=== PATIENT | female | born 1955 | race Caucasian/White ===

== ENCOUNTER 2017-09-15 12:55 | Outpatient (CLI) | payer OTHER | END 2017-09-15 12:56 | disposition home or self-care (01) | LOC: BICRAD 12:55 | PROVIDERS: ATTEND Podiatrist | DX: M79.672 Pain in left foot (principal); M77.9 Enthesopathy, unspecified ==

== ENCOUNTER 2018-04-15 06:04 | Day surgery (SDC) | payer OTHER ==
[2018-04-14 08:39] VITALS: BMI 25.8
[2018-04-15] MEDS ORDERED: Fentanyl 100 MCG/2 ML VIAL ONE ×2 (06:31→08:38)
[2018-04-15] MEDS ORDERED: Midazolam HCl 2 mg/2 ml Vial ONE (06:31)
[2018-04-15] MEDS ORDERED: CEFAZOLIN/Water 2 GM/20 ML SYRINGE ONE (07:01)
[2018-04-15] MEDS ORDERED: Lidocaine 2% 10 ML INJ ONE ×2 (07:10)
[2018-04-15] MEDS ORDERED: Bupivacaine HCl 0.5%/Epinephrine 1:200,000/PF 30 ml Vial ONE ×2 (07:10)
--- NOTE | 2018-04-15 09:09 | OP ---
DATE OF PROCEDURE: 04/15/2018. PREOPERATIVE DIAGNOSES: 1. Soft tissue mass, 4 cm back. 2. Soft tissue mass 3 cm, right thigh. POSTOPERATIVE DIAGNOSES: 1. Soft tissue mass, 4 cm back. 2. Soft tissue mass 3 cm, right thigh. PROCEDURE: Excision soft tissue mass back, soft tissue mass, right thigh. SURGEON: Umair Moya M.D. ANESTHESIA: General. ESTIMATED BLOOD LOSS: Minimal. COMPLICATIONS: None. SPECIMEN: Soft tissue mass right thigh and back. TECHNIQUE: The patient was taken to the operating placed supine on the table. After general anesthe tic was obtained, she was placed in left lateral decubitus position. Her posterior back and upper ba ck, as well as her right lateral upper thigh are prepped and draped in a sterile fashion. Local anes thetic infiltrated over each and incisions were made over each palpable abnormality. Each palpable a bnormality is dissected free from surrounding structures and sent separate to path for final diagnosi s. The cavity in the posterior back was large enough to require a #10 drain, it was brought out thro h separate stab incision, sewn to the skin using silk. The incisions were both closed using 3-0 Vi cryl, 4-0 Monocryl, and Dermabond. The patient was en route to recovery in stable condition. All in strument counts, needle counts, lap counts were correct.
[2018-04-15] MEDS ORDERED: HYDROcodone/Acetaminophen 5/325 mg Tablet ONE (09:43)
[2018-04-15] MEDS ORDERED: Dexamethasone 20 MG/5 ML VIAL ONE (14:46)
[2018-04-15] MEDS ORDERED: Ondansetron HCl/PF 4 MG/2 ML Vial ONE (14:46)
[2018-04-15] MEDS ORDERED: Glycopyrrolate 0.2 MG/ML 5 ML SYRINGE ONE (14:46)
[2018-04-15] MEDS ORDERED: PROPOFOL 200 MG/20 ML VIAL ONE (14:46)
== END 2018-04-15 10:45 | disposition home or self-care (01) ==
LOC: SDC 06:04
PROVIDERS: ATTEND Surgery
PROC: 0JBL0ZZ Excision of Right Upper Leg Subcutaneous Tissue and Fascia, Open Approach (ICD-10-PCS; principal; 2018-04-15)
PROC: 0JB70ZZ Excision of Back Subcutaneous Tissue and Fascia, Open Approach (ICD-10-PCS; principal; 2018-04-15)
DX: M79.9 Soft tissue disorder, unspecified (principal); Z91.048 Other nonmedicinal substance allergy status
CPT/HCPCS: 88304; 96374; J0670; J1100; J2250; J2405; J2704; J3010

== ENCOUNTER 2018-06-02 10:16 | Outpatient (CLI) | payer OTHER | END 2018-06-02 10:17 | disposition home or self-care (01) | LOC: BICMAMMO 10:16 | PROVIDERS: ATTEND Internal Medicine | DX: Z12.31 Encounter for screening mammogram for malignant neoplasm of breast (principal); Z80.3 Family history of malignant neoplasm of breast | CPT/HCPCS: 77063; 77067 ==

== ENCOUNTER 2019-12-21 06:15 | Outpatient (CLI) | payer OTHER ==
[2019-12-21 09:29] LABS: #Basophils 0.1 thou/uL (0.0-0.2); #Eosinphils 0.1 thou/uL (0.0-0.7); #Lymphocytes 3.5 thou/uL (1.20-3.40); #Monocytes 0.6 thou/uL (0.11-0.59); #Neutrophils 3.2 thou/uL (1.40-6.50); %Basophils 0.8 % (0.0-1.0); %Lymphocytes 47.1 % (21.0-51.0); Hemoglobin 13.9 g/dL (12.0-16.0); Mean Corpuscular HGB CONC 32.8 g/dL (32.0-36.0); Mean Corpuscular Hemoglobin 30.1 pg (27.0-31.0); Mean Corpuscular Volume 91.7 fL (78.0-98.0); Mean Platelet Volume 6.8 fL (7.4-10.4); Platelet Count 354 thou/uL (130-400); RBC Distribution Width 11.3 % (11.5-14.5); Red Blood Cell (RBC) Count 4.62 mill/uL (4.20-5.40); White Blood Cell (WBC) Count 7.3 thou/uL (4.8-10.8)
[2019-12-21 10:02] LABS: Anion Gap 14 mmol/L (10-20); BUN (Urea Nitrogen) 12 mg/dL (9.8-20.1); Calc. Creatinine Clearance 0 mL/min (70-130); Calcium 9.7 mg/dL (7.8-10.44); Carbon Dioxide 27 mmol/L (23-31); Chloride 103 mmol/L (98-107); Estimated GFR-MDRD 70; Glucose 104 mg/dL (80-115); Potassium 3.9 mmol/L (3.5-5.1); Sodium 140 mmol/L (136-145)
[2019-12-21 17:16] LABS: SARS-CoV-2 MS2 Positive; SARS-CoV-2 N Gene Negative; SARS-CoV-2 S Gene Negative; SARS-CoV-2 orf1ab Negative
== END 2019-12-21 06:16 | disposition home or self-care (01) ==
LOC: LABBT 06:15
PROVIDERS: ATTEND Orthopaedic Surgery
DX: Z01.812 Encounter for preprocedural laboratory examination (principal); Z11.59 Encounter for screening for other viral diseases; G56.01 Carpal tunnel syndrome, right upper limb
CPT/HCPCS: 80048; 85025; 87635; U0003

== ENCOUNTER 2019-12-22 08:57 | Day surgery (SDC) | payer OTHER ==
[2019-12-21 08:10] VITALS: BMI 25.0
[2019-12-22] MEDS ORDERED: Propofol 500 MG/50 ML VIAL ONE (11:43)
[2019-12-22] MEDS ORDERED: Fentanyl 100 MCG/2 ML VIAL ONE (11:43)
[2019-12-22] MEDS ORDERED: Lidocaine 1% w/Epinephrine 1:100K 20 ML VIAL ONE (11:50)
--- NOTE | 2019-12-23 08:25 | OP ---
DATE OF PROCEDURE: 12/22/2019 PREOPERATIVE DIAGNOSIS: Right carpal tunnel syndrome. POSTOPERATIVE DIAGNOSIS: Right carpal tunnel syndrome. TYPE OF PROCEDURE: Right carpal tunnel release. ANESTHESIA: TIVA. ESTIMATED BLOOD LOSS: Minimal. TOURNIQUET TIME: SPECIMEN: None. DRAINS: None. COMPLICATIONS: None. PROCEDURE IN DETAIL: After appropriate consent was obtained, the patient was taken to the operating room where TIVA anesthesia was induced. The arm was prepped and draped in the sterile fashion. The arm was exsanguinated. The tourniquet was inflated to 250 mmHg. A longitudinal incision was made. Hemostasis obtained. Dissection was carried down to the transverse carpal ligament. The transverse carpal ligament was incised. Hemostat was placed deep in the transverse carpal ligament. The knife was used to cut down unto the ligament and hemostat. Care was taken to protect the contents of the carpal canal. Attention was then turned proximally. Metzenbaum scissors were used to release the carpal ligament into the forearm fascia. The carpal tunnel was palpated. There were no masses. The tourniquet was released. Hemostasis was obtained. Copious irrigation performed. The skin was closed with 4-0 nylon. A sterile dressing was applied and the patient was placed in a splint. There were no complications. Job ID: [id number]
== END 2019-12-22 13:15 | disposition home or self-care (01) ==
LOC: SDC 08:57
PROVIDERS: ATTEND Orthopaedic Surgery
PROC: 01N50ZZ Release Median Nerve, Open Approach (ICD-10-PCS; principal; 2019-12-22)
DX: G56.01 Carpal tunnel syndrome, right upper limb (principal); M19.90 Unspecified osteoarthritis, unspecified site; Z91.048 Other nonmedicinal substance allergy status; Z79.899 Other long term (current) drug therapy
CPT/HCPCS: J0690; J2704; J3010

== ENCOUNTER 2020-11-19 15:12 | Outpatient (CLI) | payer OTHER | END 2020-11-19 15:13 | disposition home or self-care (01) | LOC: BICMAMMO 15:12 | PROVIDERS: ATTEND Internal Medicine | DX: Z12.31 Encounter for screening mammogram for malignant neoplasm of breast (principal); Z13.820 Encounter for screening for osteoporosis; M19.90 Unspecified osteoarthritis, unspecified site; M85.89 Other specified disorders of bone density and structure, multiple sites; Z80.3 Family history of malignant neoplasm of breast | CPT/HCPCS: 77063; 77067; 77080 ==

== ENCOUNTER 2020-11-21 10:13 | Outpatient (CLI) | payer OTHER | END 2020-11-21 10:14 | disposition home or self-care (01) | LOC: BICMAMMO 10:13 | PROVIDERS: ATTEND Internal Medicine | DX: R92.2 Inconclusive mammogram (principal); N63.10 Unspecified lump in the right breast, unspecified quadrant; N60.01 Solitary cyst of right breast | CPT/HCPCS: G0279 ==

== ENCOUNTER 2021-05-27 16:02 | Outpatient (CLI) | payer OTHER | END 2021-05-27 16:03 | disposition home or self-care (01) | LOC: BICULT 16:02 | PROVIDERS: ATTEND Internal Medicine | DX: R92.8 Other abnormal and inconclusive findings on diagnostic imaging of breast (principal) ==

== ENCOUNTER 2024-06-23 10:40 | Outpatient (CLI) | payer MEDICARE | END 2024-06-23 10:41 | disposition home or self-care (01) | LOC: SCSMRI 10:40 | PROVIDERS: ATTEND Orthopaedic Surgery | DX: M75.101 Unspecified rotator cuff tear or rupture of right shoulder, not specified as traumatic (principal); S43.431A Superior glenoid labrum lesion of right shoulder, initial encounter ==

== ENCOUNTER 2024-08-15 11:38 | Outpatient (CLI) | payer MEDICARE ==
[2024-08-15 12:52] LABS: #Basophils 0.04 10x3/uL (0.0-0.2); %Basophils 0.5 % (0.0-1.0); %Lymphocytes 39.4 % (21.0-51.0); %Monocytes 8.4 % (0.0-10.0); %Neutrophils 50.2 % (42.0-75.0); Mean Corpuscular HGB CONC 33.3 g/dL (32.0-36.0); Mean Corpuscular Hemoglobin 29.7 pg (27.0-31.0); Mean Platelet Volume 8.7 fL (7.4-10.4); Platelet Count 401 10x3/uL (130-400); RBC Distribution Width 12.8 % (11.5-14.5); Red Blood Cell (RBC) Count 4.72 mill/uL (4.20-5.40)
[2024-08-15 13:05] LABS: Anion Gap 12 mmol/L (10-20); BUN (Urea Nitrogen) 20 mg/dL (9.8-20.1); Calc. Creatinine Clearance 0 mL/min (70-130); Calcium 10.2 mg/dL (7.8-10.44); Carbon Dioxide 29 mmol/L (23-31); Chloride 103 mmol/L (98-107); Estimated GFR 77; Glucose 94 mg/dL (80-115); Potassium 4.6 mmol/L (3.5-5.1); Sodium 139 mmol/L (136-145)
== END 2024-08-15 11:39 | disposition home or self-care (01) ==
LOC: LABBT 11:38
PROVIDERS: ATTEND Orthopaedic Surgery
DX: Z01.818 Encounter for other preprocedural examination (principal); M75.101 Unspecified rotator cuff tear or rupture of right shoulder, not specified as traumatic
CPT/HCPCS: 71046; 80048; 85025

== ENCOUNTER 2024-08-19 08:43 | Day surgery (SDC) | payer MEDICARE ==
[2024-08-15 11:55] VITALS: BMI 26.2
[2024-08-19] MEDS ORDERED: fentaNYL 50 mcg/mL 1 mL Vial ONE (09:18)
[2024-08-19] MEDS ORDERED: Ropivacaine 0.2% HCl/PF 20 ML ONE (09:18)
[2024-08-19] MEDS ORDERED: Bupivacaine 0.25% HCL 30 ML VIAL ONE (09:18)
[2024-08-19] MEDS ORDERED: EPINEPHrine 1 MG/ML VIAL ONE (09:18)
[2024-08-19] MEDS ORDERED: Midazolam HCl 2 mg/2 ml Vial ONE (09:18)
[2024-08-19] MEDS ORDERED: Ropivacaine 0.5% HCl/PF (150 MG/30 ML VIAL) ONE (09:18)
[2024-08-19] MEDS ORDERED: PROPOFOL 20 ML ONE (09:28)
[2024-08-19] MEDS ORDERED: fentaNYL PF 100 MCG/2 ML SYRINGE ONE (09:28)
[2024-08-19] MEDS ORDERED: Rocuronium Bromide 10 MG/ML (10ML VIAL) ONE (09:29)
[2024-08-19] MEDS ORDERED: Lidocaine 1% PF 5 ML VIAL ONE (09:29)
[2024-08-19] MEDS ORDERED: CEFAZOLIN 2 GM VIAL ONE (09:45)
[2024-08-19] MEDS ORDERED: traMADol HCl 50 MG TAB PO PRN ×2 (10:15)
[2024-08-19] MEDS ORDERED: Promethazine HCl 25 MG/ML VIAL IM PRN (10:15)
[2024-08-19] MEDS ORDERED: Ondansetron PF 4 MG/2 ML Vial IVP PRN (10:15)
[2024-08-19] MEDS ORDERED: Zolpidem Tartrate 5 MG TAB PO PRN (10:15)
[2024-08-19] MEDS ORDERED: Ropivacaine 0.2% 550 ML 550 ML NERVE BLCK SCH (10:15)
[2024-08-19] MEDS ORDERED: HYDROcodone/Acetaminophen 10/325 mg Tablet PO PRN ×2 (10:15)
[2024-08-19] MEDS ORDERED: Dexamethasone 20 MG/5 ML VIAL ONE (10:30)
[2024-08-19] MEDS ORDERED: Ondansetron PF 4 MG/2 ML Vial ONE (10:30)
[2024-08-19] MEDS ORDERED: PHENYLEPHRINE-NS 100 MCG/ML 10 ML SYRINGE ONE (10:41)
[2024-08-19] MEDS ORDERED: ePHEDrine Sulfate 50 MG/10 ML VIAL ONE (11:12)
[2024-08-19] MEDS ORDERED: SUGAMMADEX SODIUM 200 MG/2 ML VIAL ONE (11:33)
[2024-08-19] MEDS ORDERED: Ketorolac Tromethamine 30 MG (1 mL) VIAL IVP SCH (12:00)
== END 2024-08-19 14:10 | disposition home or self-care (01) ==
LOC: SDC 08:43
PROVIDERS: ATTEND Orthopaedic Surgery
PROC: 0RNJ4ZZ Release Right Shoulder Joint, Percutaneous Endoscopic Approach (ICD-10-PCS; principal; 2024-08-19)
PROC: 0LQ14ZZ Repair Right Shoulder Tendon, Percutaneous Endoscopic Approach (ICD-10-PCS; 2024-08-19)
PROC: 0LS30ZZ Reposition Right Upper Arm Tendon, Open Approach (ICD-10-PCS; 2024-08-19)
PROC: 3E0T3BZ Introduction of Anesthetic Agent into Peripheral Nerves and Plexi, Percutaneous Approach (ICD-10-PCS; 2024-08-19)
DX: M75.101 Unspecified rotator cuff tear or rupture of right shoulder, not specified as traumatic (principal); S46.111A Strain of muscle, fascia and tendon of long head of biceps, right arm, initial encounter; M17.12 Unilateral primary osteoarthritis, left knee; I10 Essential (primary) hypertension; E78.5 Hyperlipidemia, unspecified; Z90.710 Acquired absence of both cervix and uterus; Z90.49 Acquired absence of other specified parts of digestive tract; Z87.59 Personal history of other complications of pregnancy, childbirth and the puerperium; Z91.048 Other nonmedicinal substance allergy status; Z79.899 Other long term (current) drug therapy; X50.0XXA Overexertion from strenuous movement or load, initial encounter; Y93.B9 Activity, other involving muscle strengthening exercises
CPT/HCPCS: 23430; 29826; 29827; 64416; A4306; C1713 ×2; J0171; J0665; J1100; J2250; J2405; J2704; J2795 ×3; J3010